=== PATIENT | female | born 1970 | race Caucasian/White ===

== ENCOUNTER 2016-12-28 13:27 | Emergency (ER) | payer OTHER ==
--- NOTE | 2016-12-28 13:39 | ED Physician Documentation ---
Abdominal Pain - HISTORIAN Historian: patient - HPI Chief Complaint: Abdominal Pain Onset: days ago (this AM) Duration: constant, persistent Timing: still present Context: denies: bad food, recent trauma Severity: moderate Quality: aching, sharp Associated Symptoms: none, vomiting. denies: fever, chills Exacerbated by: nothing Relieved by: nothing Further Comments: yes (Patient started to have some LLQ abd pain this AM with radiation in to the flank area. Has gradually become worse. No preciptating factor, no modifying factros noted) - ROS CONST: no problems GI/: denies: constipation (last BM this AM and was normal, no blood noted.), black stools, bloody urine, bloody stools, dark urine, problems urinating - SOCIAL HX Smoking History: non-smoker Alcohol Use: none Drug Use: none - FAMILY HX Family History: no significant history. denies: kidney stones - PAST HX Past History: none Other History: none Surgeries/Procedures: cholecystectomy Home Medications: Ambulatory Orders Medication Instructions Recorded Ciprofloxacin HCl [Cipro] 500 mg PO BID #14 tablet 12/28/16 HYDROcodone /APAP 5/325 [[place] 1 each PO Q4 #20 tablet 12/28/16 5/325] Allergies/Adverse Reactions: Allergies Allergy/AdvReac Type Severity Reaction Status Date / Time ibuprofen [From Motrin] AdvReac Unknown Face Verified 12/28/16 14:00 Swelling Penicillins AdvReac Unknown Face Verified 12/28/16 14:00 Swelling - VITAL SIGNS Vital Signs: Vital Signs Temp Pulse Resp BP Pulse Ox 70 16 122/81 99 12/28/16 13:35 12/28/16 13:35 12/28/16 13:35 12/28/16 13:35 - REVIEWED ASSESSMENTS Nursing Assessment Reviewed: Yes Vitals Reviewed: Yes ED Results Lab/Radiology - Lab Results Lab Results: Lab Results 12/28/16 12/28/16 12/28/16 14:00 14:00 14:00 WBC RBC Hgb Hct MCV MCH MCHC RDW Plt Count Neut % (Auto) Lymph % (Auto) [place] % (Auto) Eos % (Auto) Baso % (Auto) Neut # Lymph # [place] # Eos # Baso # Reactive Lymphs % Reactive Lymphs # Sodium 139 mmol/L mmol/L (136-145) Potassium 4.0 mmol/L mmol/L (3.5-5.0) Chloride 106 mmol/L mmol/L (98-110) Carbon Dioxide 28 mmol/L mmol/L (20-32) BUN 15 mg/dL mg/dL (10-26) Creatinine 0.7 mg/dL mg/dL (0.4-1.5) Estimated Creat Clear 160 Est GFR ( Amer) > 60 (60 - ) Est GFR (Non-Af Amer) > 60 (60 - ) Glucose 92 mg/dL mg/dL (70-99) Calcium 9.3 mg/dL mg/dL (8.5-10.5) Total Bilirubin 0.4 mg/dL mg/dL (0.2-1.2) AST 17 U/L U/L (0-41) ALT 11 U/L U/L (0-45) Alkaline Phosphatase 73 U/L U/L (46-116) Total Protein 7.5 g/dL g/dL (6.0-8.5) Albumin 4.5 g/dL g/dL (3.0-5.5) Amylase 65 U/L U/L (20-104) Urine Color Yellow (YELLOW) Urine Appearance Slightly cloudy (CLEAR) Urine pH 5.5 (5.0 - 8.0) Ur Specific [place] 1.010 (1.010-1.030) Urine Protein 2+ mg/dL H mg/dL (NEGATIVE) Urine Ketones Negative mg/dL mg/dL (NEGATIVE) Urine Occult Blood 2+ H (NEGATIVE) Urine Nitrite Negative (NEGATIVE) Urine Bilirubin Negative (NEGATIVE) Urine Urobilinogen 0.2 Eu Eu (0.2-1.0) Ur Leukocyte Esterase 1+ H (NEGATIVE) Urine RBC 0-2 (0-2 HPF) Urine WBC 25-50 H (0-5 HPF) Urine WBC Clumps Present H (NEGATIVE) Ur Squamous Epith Cells Few (NEG-FEW) Amorphous Sediment Few H (NEGATIVE) Urine Bacteria Few H (NEGATIVE) Urine Glucose Negative mg/dL mg/dL (NEGATIVE) Urine HCG, Qual Negative (NEGATIVE) 12/28/16 14:00 WBC 9.00 K/ul K/ul (4.00-12.00) RBC 3.90 M/ul M/ul (3.90-5.20) Hgb 12.7 g/dL g/dL (12.0-16.0) Hct 38.8 % % (34.5-46.5) MCV 99.6 fl fl (80.0-100.0) MCH 32.7 pg pg (28.0-34.0) MCHC 32.8 g/dL g/dL (30.0-36.0) RDW 12.7 % % (11.3-14.3) Plt Count 236 K/mm3 K/mm3 (130-400) Neut % (Auto) 76.3 % % (39.0-79.0) Lymph % (Auto) 15.5 % L % (16.0-50.0) [place] % (Auto) 4.2 % % (0.0-11.0) Eos % (Auto) 2.7 % % (0.0-6.8) Baso % (Auto) 0.3 (0.0-1.5) Neut # 6.8 # k/uL # k/uL (1.4-7.7) Lymph # 1.4 # k/uL # k/uL (0.6-4.0) [place] # 0.4 # k/uL # k/uL (0.0-0.9) Eos # 0.2 # k/uL # k/uL (0.0-0.6) Baso # 0.0 # k/uL # k/uL (0.0-0.5) Reactive Lymphs % 1.0 % % (0.0-5.0) Reactive Lymphs # 0.1 # k/uL # k/uL (0.0-0.8) Sodium Potassium Chloride Carbon Dioxide BUN Creatinine Estimated Creat Clear Est GFR ( Amer) Est GFR (Non-Af Amer) Glucose Calcium Total Bilirubin AST ALT Alkaline Phosphatase Total Protein Albumin Amylase Urine Color Urine Appearance Urine pH Ur Specific [place] Urine Protein Urine Ketones Urine Occult Blood Urine Nitrite Urine Bilirubin Urine Urobilinogen Ur Leukocyte Esterase Urine RBC Urine WBC Urine WBC Clumps Ur Squamous Epith Cells Amorphous Sediment Urine Bacteria Urine Glucose Urine HCG, Qual - Orders Orders: ED Orders Category Date Time Status CT ABD & PELVIS W/ CON Stat Exams 12/28/16 Taken AMYLASE Routine Lab 12/28/16 14:00 Completed CBC/PLATELET/DIFF Routine Lab 12/28/16 14:00 Completed CMP Routine Lab 12/28/16 14:00 Completed URINALYSIS Routine Lab 12/28/16 14:00 Completed URINE CULTURE Routine Lab 12/28/16 14:00 Received URINE HCG Routine Lab 12/28/16 14:00 Completed 0.9 % Sodium Chloride [Normal Saline] 1,000 ml Med 12/28/16 14:00 Ordered IV Q10H fentaNYL CITRATE/PF [Duragesic] Med 12/28/16 13:43 Discontinued 50 mcg IVP NOW ONE Abdominal Pain Physical Exam - Physical Exam General Appearance: alert, moderate distress NECK: normal inspection, supple RESPIRATORY: no resp distress, chest non-tender, breath sounds normal. No: wheezes, rales, rhonchi CVS: reg rate & rhythm, heart sounds normal, equal pulses, no murmur, no gallop ABDOMEN: soft, no distension, tenderness (LLU>LUQ. some mild guarding and reboundtenderness noted. ), decreased BS, rebound (mild), guarding (mild LLQ). No: bruit, distended BACK: CVA tenderness (L) SKIN: warm/dry, normal color NEURO: oriented X3, mood/affect nml, cognition normal Vital Signs: Vital Signs Temp Pulse Resp BP Pulse Ox 70 16 122/81 99 12/28/16 13:35 12/28/16 13:35 12/28/16 13:35 12/28/16 13:35 Discharge Clincal Impression: Pyelonephritis Prescriptions: Ciprofloxacin HCl [Cipro] 500 mg PO BID #14 tablet Referrals: Primary Doctor,No [Primary Care Provider] - 2 Days Additional Instructions: Drink a lot of fluids. Take antibiotic (cipro) until gone. Watch for fever or chills. If your symptoms get worse to follow up with primary care physician. Have urine rechecked again in two to three weeks. Home Medications: Ambulatory Orders Ciprofloxacin HCl [Cipro] 500 mg PO BID #14 tablet 12/28/16 HYDROcodone /APAP 5/325 [[place] 5/325] 1 each PO Q4 #20 tablet 12/28/16 Condition: Stable Disposition: 01 HOME, SELF-CARE Decision to Admit: NO Date of Decison to Admit: 12/28/16 Decision Time: 15:36
[2016-12-28] MEDS ORDERED: fentaNYL CITRATE/PF 100 MCG/ 2ML AMP IVP ONE (13:43)
[2016-12-28] MEDS ORDERED: 0.9 % SODIUM CHLORIDE 1,000 ML IV SCH (14:00)
[2016-12-28] MEDS ORDERED: 0.9 % SODIUM CHLORIDE 1,000 ML IV ONE (14:02)
[2016-12-28 14:05] LABS: BASOPHILS % 0.3 (0.0-1.5); EOSINOPHILS % 2.7 % (0.0-6.8); MEAN CORPUSCULAR HEMOGLOBIN 32.7 pg (28.0-34.0); MEAN CORPUSCULAR VOLUME 99.6 fl (80.0-100.0); MONOCYTES % 4.2 % (0.0-11.0); NEUTROPHILS # 6.8 # k/uL (1.4-7.7)
[2016-12-28 14:09] LABS: APPEARANCE,URINE Slightly Cloudy (CLEAR); COLOR,URINE Yellow (YELLOW); OCCULT BLOOD,URINE 2+ (NEGATIVE); PH URINE 5.5 (5.0 - 8.0); UROBILINOGEN URINE 0.2 Eu (0.2-1.0)
[2016-12-28 14:17] LABS: AMORPHOUS SEDIMENT,UR FEW (NEGATIVE)
[2016-12-28 14:23] LABS: eGFR (African) > 60; eGFR (Non-African) > 60
[2016-12-28 16:00] VITALS: BP 121/66
--- NOTE | 2016-12-29 05:30 | Diagnostic Imaging Report ---
LEATHA DUNHAM~ [facility] [address] [facility] [address] [place] [address]. [id number] ~ ~ ~ ~ Report Submission Date: Dec 28, 2016 3:17:11 PM CDT Patient ~ Study Name: TENA BOURGEOIS ~ Date: Dec 28, 2016 2:39:19 PM CDT ~ Modality Type: CT\SR Gender: F ~ Description: CT ABD & PELVIS W/ CON : 72 ~ Institution: [facility] Physician: LEATHA DUNHAM ~ ~ ~ ~ CT Abdomen/pelvis with contrast History: Left-sided abdominal pain, cholecystectomy Findings: No comparison studies No free intraperitoneal air Degenerative changes thoracic -lumbar spine Post cholecystectomy The liver, spleen, adrenal glands pancreas are within normal limits Both kidneys enhance symmetrically, distended urinary bladder There is moderate dilatation of the left renal pelvis with ~urothelial enhancement suggestive uti. Tiny phlebolith versus distal left ureteric calculus Uterus and endometrial canal are prominent. Left ovarian cyst measures 2.6 cm Small amount of free fluid is seen in the pelvis, no bowel obstruction. The appendix is not identified with certainty Impression: 1. Moderate dilatation of the left renal pelvis and left ureter with urothelial enhancement suggestive of UTI. Small 2 mm radiopaque density is noted in the distal ureteric region, this may represent a phlebolith versus small distal ureteric calculus. 2. Small to moderate amount of free fluid in the pelvis 3.Retroverted uterus with prominent endometrium canal. Left ovarian cyst ~ Electronically signed on Dec 28, 2016 3:17:11 PM CDT by: Arabella Bello The appendix is within normal limits Other differential diagnostic considerations include a recently passed left ureteric calculus, PID ~in the appropriate scenario. Pelvic ultrasound may be done. Findings discussed by Dr. Bello with Dr. Dunham on 12/28/16 at approx. 3:42 pm [employer] Addendum electronically signed by Arabella Bello on December 28, 2016 3:42:10 PM CDT Left gluteal lipoma Addendum electronically signed by Arabella Bello on December 28, 2016 5:33:18 PM CDT MTDD
== END 2016-12-28 15:45 | disposition home or self-care (01) ==
LOC: ED 13:27
DX: N12 Tubulo-interstitial nephritis, not specified as acute or chronic (principal)
CPT/HCPCS: 74177; 80053; 81002; 81025; 82150; 85025; 87086; 96361; 96374; 99283; 99284; J3010; J7030; Q9966; S1016